=== PATIENT | male | born 1980 | race Hispanic/Latino ===

== ENCOUNTER → 2024-03-18 | Outpatient (CLI) | payer OTHER | END | disposition home or self-care (01) | LOC: RAD 13:24 | PROVIDERS: ATTEND Nurse Practitioner | DX: J32.0 Chronic maxillary sinusitis (principal); Z00.00 Encounter for general adult medical examination without abnormal findings | CPT/HCPCS: 70220 ==

== ENCOUNTER → 2024-03-31 | Outpatient (CLI) | payer OTHER | END | disposition home or self-care (01) | LOC: RAD 08:21 | PROVIDERS: ATTEND Nurse Practitioner | DX: Z00.00 Encounter for general adult medical examination without abnormal findings (principal); M41.24 Other idiopathic scoliosis, thoracic region; M43.12 Spondylolisthesis, cervical region; M41.25 Other idiopathic scoliosis, thoracolumbar region; M43.16 Spondylolisthesis, lumbar region | CPT/HCPCS: 70220; 72040; 72072; 72100 ==